=== PATIENT | female | born 1980 | race Caucasian/White ===

== ENCOUNTER → 2017-02-20 | Outpatient (CLI) | payer OTHER ==
[2017-02-20 11:05] LABS: CH 27.8; CHCM 32.1; HGB 10.2 gm/dL (11.4-16.0); MCH 27.8 pg (25.0-35.0); MCHC 31.8 g/dL (31.0-37.0); MCV 87.3 fL (80.0-100.0); Mean Platelet Volume 5.9; RBC 3.67 m/uL (3.80-5.40); WBC 13.5 k/uL (3.8-10.6)
== END ==
LOC: LABWHC1 09:21
PROVIDERS: ATTEND Obstetrics & Gynecology
DX: Z34.82 Encounter for supervision of other normal pregnancy, second trimester (principal)
CPT/HCPCS: 36415; 82950; 85027

== ENCOUNTER 2017-06-03 06:00 | Inpatient (IN) | payer OTHER ==
[2017-06-03] MEDS ORDERED: TERBUTALINE 1 MG/ML VIAL SQ PRN (06:49)
[2017-06-03] MEDS ORDERED: LIDOCAINE 1% (PF) 10 MG/ML (30 ML SDV) SQ PRN (06:49)
[2017-06-03] MEDS ORDERED: METHYLERGONOVINE 0.2 MG/ML 1 ML AMP IM PRN (06:49)
[2017-06-03] MEDS ORDERED: CARBOPROST TROMETHAMINE 250 MCG/ML 1 ML AMP IM PRN (06:49)
[2017-06-03] MEDS ORDERED: OXYTOCIN 10 UNIT/ML 1 ML VIAL IM PRN (06:49)
[2017-06-03 07:00] VITALS: BMI 44.9
[2017-06-03 07:00] LABS: Basophils % (A) 0 %; CH 27.8; Eosinophils # (A) 0.2 k/uL (0-0.7); Eosinophils % (A) 1 %; HCT 34.5 % (34.0-46.0); HDW 2.53; HGB 11.6 gm/dL (11.4-16.0); Luc # (Auto) 0.14; Luc % (Auto) 1; Lymphocytes % (A) 18 %; MCH 28.4 pg (25.0-35.0); MCHC 33.5 g/dL (31.0-37.0); MCV 84.7 fL (80.0-100.0); Mean Platelet Volume 6.9; Monocytes # (A) 0.5 k/uL (0-1.0); Monocytes % (A) 5 %; Neutrophils # (A) 8.5 k/uL (1.3-7.7); Neutrophils % (A) 75 %; RBC 4.07 m/uL (3.80-5.40); RDW 15.5 % (11.5-15.5); WBC 11.4 k/uL (3.8-10.6)
[2017-06-03] MEDS ORDERED: OXYTOCIN 20 UNITS/1000 ML NS 1,000 ML IV SCH ×2 (07:00→17:00)
--- NOTE | 2017-06-03 07:16 | P.HPOB ---
History of Present Illness H&P Date: 06/03/17 Chief Complaint: Induction of Labor 36 year old presents at 39 weeks 1 day for induction of labor. Her cervix is 2-3/70/-2 and she is danielle irregularly. heart tones 135-140 with moderate variability and reactive. Review of Systems All systems: negative Constitutional: Denies chills, Denies fever Eyes: denies blurred vision, denies pain Ears, nose, mouth and throat: Denies headache, Denies sore throat Cardiovascular: Denies chest pain, Denies shortness of breath Respiratory: Denies cough Gastrointestinal: Denies abdominal pain, Denies diarrhea, Denies nausea, Denies vomiting Genitourinary: Denies dysuria, Denies hematuria Musculoskeletal: Denies myalgias Integumentary: Denies pruritus, Denies rash Neurological: Denies numbness, Denies weakness Psychiatric: Denies anxiety, Denies depression Endocrine: Denies fatigue, Denies weight change Past Medical History Past Medical History: Hypertension Additional Past Medical History / Comment(s): Obstetric history: She's had 2 previous vaginal deliveries. This is her third . She's had care with me since 10 weeks gestation. She's been on labetalol 200 mg twice a day for hypertension and has been controlled with this. NSTs and biophysical profiles have been within normal limits. O+, antibodies negative, rubella nonimmune, treponema antibody negative, toxoplasmosis negative, hepatitis B negative, HIV nonreactive. GBS negative. History of Any Multi-Drug Resistant Organisms: None Reported Past Surgical History: No Surgical Hx Reported Past Anesthesia/Blood Transfusion Reactions: No Reported Reaction Past Psychological History: No Psychological Hx Reported Smoking Status: Never smoker Past Alcohol Use History: None Reported Past Drug Use History: None Reported - Past Family History Father Family Medical History: No Reported History Medications and Allergies Home Medications Medication Instructions Recorded Confirmed Type Labetalol HCl [Labetalol HCl] 1 tab PO BID 06/03/17 06/03/17 History Allergies Allergy/AdvReac Type Severity Reaction Status Date / Time No Known Allergies Allergy Verified 06/03/17 06:45 Exam Osteopathic Statement: *. No significant issues noted on an osteopathic structural exam other than those noted in the History and Physical/Consult. - Vital Signs Vital signs: Vital Signs Temp Pulse Resp BP Pulse Ox 06/03/17 06:56 96.8 F L 78 16 114/71 97 Intake and Output 06/02/17 06/03/17 06/03/17 22:59 06:59 14:59 Other: Weight 107.955 kg Heart: Regular rate and rhythm Lungs: Clear to auscultation bilaterally Abdomen: Soft, nontender Extremities: Negative Homans sign Results Result Diagrams: 06/03/17 06:27 Abnormal Lab Results - Last 24 Hours (Table) 06/03/17 Range/Units 06:27 WBC 11.4 H (3.8-10.6) k/uL Neutrophils # 8.5 H (1.3-7.7) k/uL Assessment and Plan (1) Normal labor Status: Acute (2) Hypertension Status: Acute Plan: 1. Admit to family place 2. Continue labetalol 3. Amniotomy and Pitocin for induction of labor 4. Anticipate normal vaginal delivery
[2017-06-03] MEDS: LACTATED RINGERS 1,000 ML IV SCH ×3 (07:18→22:17)
[2017-06-03] MEDS: LABETALOL 200 MG TAB PO SCH ×2 (16:07→20:31)
[2017-06-03] MEDS ORDERED: ACETAMINOPHEN TAB 325 MG TAB PO PRN (16:46)
[2017-06-03] MEDS ORDERED: diphenhydrAMINE 50 MG/ML 1 ML VIAL IVP PRN ×2 (16:46)
[2017-06-03] MEDS ORDERED: BENZOCAINE/MENTHOL SPRAY 1 GM/SPRAY AEROSOL TOPICAL PRN (16:46)
[2017-06-03] MEDS ORDERED: Acetaminophen-Codeine 300-30mg TAB PO PRN ×2 (16:46)
[2017-06-03] MEDS ORDERED: IBUPROFEN 600 MG TAB PO PRN (16:46)
[2017-06-03] MEDS ORDERED: diphenhydrAMINE 25 MG CAP PO PRN (16:46)
[2017-06-03] MEDS ORDERED: diphenhydrAMINE 50 MG CAP PO PRN (16:46)
[2017-06-03] MEDS ORDERED: SIMETHICONE 80 MG CHEWABLE PO PRN (16:46)
[2017-06-03] MEDS ORDERED: HYDROCORTISONE 2.5% RECTAL CREAM 30 GM TUBE RECTAL PRN (16:46)
[2017-06-03] MEDS ORDERED: LANOLIN CREAM 5 GM TUBE TOPICAL PRN (16:46)
[2017-06-03] MEDS ORDERED: WITCH HAZEL 1 EACH MED..PAD TOPICAL PRN (16:46)
[2017-06-03] MEDS ORDERED: ZOLPIDEM 5 MG TAB PO PRN (16:46)
[2017-06-03] MEDS: SENNOSIDES-DOCUSATE SODIUM 1 EACH TAB PO SCH (20:32)
[2017-06-04 00:31] VITALS: TEMP 97.8
[2017-06-04] MEDS: SENNOSIDES-DOCUSATE SODIUM 1 EACH TAB PO SCH (08:04)
[2017-06-04 08:32] VITALS: PULSE 72; RESP 16
--- NOTE | 2017-06-04 08:44 | P.PROBDLV ---
Vaginal Delivery Note - . Vaginal Delivery Note: 36-year-old presented at 39 weeks and 1 day for induction of labor. Her cervix was 2-37 m dilated, 70% effaced, -2 station. She is danielle irregularly. heart tones 130-135 with moderate variability and reactive. Pitocin was started and amniotomy was performed at 7:07 AM. Clear fluid noted. She progressed slowly throughout the day and her cervix was completely dilated at 1500. She pushed, and delivered a viable male infant over intact perineum at 1506. Head delivered OA, nuchal cord 2 easily reduced, anterior shoulder delivered gentle downward traction followed by posterior shoulder and rest of body. Nose and mouth bulb suctioned, cord clamped and cut, infant placed mother's abdomen. Apgars 9, 9, weight 7 lbs. 3 oz. Placenta delivered spontaneously, intact with three-vessel cord at 1508. Vagina, cervix, perineum inspected. First-degree midline laceration was repaired with 3-0 Vicryl. Estimated blood loss 150 mL. Mother and baby in stable condition.
--- NOTE | 2017-06-04 08:54 | P.DS ---
Providers Date of admission: 06/03/17 06:01 Expected date of discharge: 06/04/17 Attending physician: Grace Alberto Primary care physician: Stated None - Discharge Diagnosis(es) (1) Normal labor Current Visit: Yes Status: Resolved (2) Hypertension Current Visit: Yes Status: Acute (3) Normal vaginal delivery Current Visit: Yes Status: Acute Hospital Course: Patient presented for induction of labor. She underwent normal vaginal delivery. Her course was uncomplicated. She'll be discharged home day #1 in stable condition to follow-up with me in 6 weeks. Plan - Discharge Summary New Discharge Prescriptions: New Ibuprofen [Motrin] 600 mg PO Q6HR PRN #30 tab PRN Reason: Mild Pain Or Fever >= 100.5 No Action Labetalol HCl [Labetalol HCl] 1 tab PO BID Discharge Medication List Labetalol HCl [Labetalol HCl] 1 tab PO BID 06/03/17 [History] Ibuprofen [Motrin] 600 mg PO Q6HR PRN #30 tab 06/04/17 [Rx] Discharge Disposition: HOME SELF-CARE
[2017-06-04] MEDS: LABETALOL 200 MG TAB PO SCH (09:20)
[2017-06-04 12:05] VITALS: BP 114/67
== END 2017-06-04 16:00 | disposition home or self-care (01) | DRG 775 ==
LOC: 4FBP 06:01
PROVIDERS: ADMIT Obstetrics & Gynecology; ATTEND Obstetrics & Gynecology
PROC: 10E0XZZ Delivery of Products of Conception, External Approach (ICD-10-PCS; principal; 2017-06-03)
PROC: 0HQ9XZZ Repair Perineum Skin, External Approach (ICD-10-PCS; 2017-06-03)
DX: O16.4 Unspecified maternal hypertension, complicating childbirth (principal); O69.81X0 Labor and delivery complicated by cord around neck, without compression, not applicable or unspecified; Z37.0 Single live birth; O70.0 First degree perineal laceration during delivery; Z3A.39 39 weeks gestation of pregnancy
CPT/HCPCS: 85025; 88307